=== PATIENT | female | born 1975 | race Two or more races ===

== ENCOUNTER 2017-03-24 02:19 | Emergency (ER) | payer SELFPAY ==
[2017-03-24] MEDS ORDERED: DIPHENHYDRAMINE HCL 25 MG CAPSULE PO ONE (05:23)
[2017-03-24] MEDS ORDERED: FAMOTIDINE 20 MG TABLET PO ONE (05:23)
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
[2017-03-24 05:53] VITALS: BP 140/82
== END 2017-03-24 05:53 | disposition home or self-care (01) ==
LOC: ER 02:19
DX: S90.562A Insect bite (nonvenomous), left ankle, initial encounter (principal); W57.XXXA Bitten or stung by nonvenomous insect and other nonvenomous arthropods, initial encounter
CPT/HCPCS: 99281